=== PATIENT | male | born 2000 | race Caucasian/White ===

== ENCOUNTER 2018-04-06 04:05 | Emergency (ER) | payer SELFPAY ==
[~2018-04-06] VITALS: Ht 170.2 cm; Wt 61.2 kg
[2018-04-06 04:07] VITALS: BP_SYST 120
== END 2018-04-06 04:22 ==
LOC: SED 04:05
DX: S00.81XA Abrasion of other part of head, initial encounter (principal); Y04.0XXA Assault by unarmed brawl or fight, initial encounter; Y93.89 Activity, other specified; Y92.89 Other specified places as the place of occurrence of the external cause; Y99.8 Other external cause status
CPT/HCPCS: 99283